=== PATIENT | female | born 1990 | race Caucasian/White ===

== ENCOUNTER 2018-06-07 15:46 | Emergency (ER) | payer OTHER ==
[2018-06-07 16:44] VITALS: RESP 18
--- NOTE | 2018-06-07 17:08 | XR ---
PROCEDURE: XR hand complete RT 3V DATE AND TIME: 06/07/2018 5:01 PM CLINICAL INDICATION: Pain TECHNIQUE: Department protocol. COMPARISON: None FINDINGS: There is no fracture or malalignment. The soft tissues are unremarkable. IMPRESSION: NO ACUTE PROCESS.
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
[2018-06-07 17:48] VITALS: BP 118/78; PULSE 91; TEMP 98
== END 2018-06-07 17:45 | disposition home or self-care (01) ==
LOC: EC 15:46
DX: S69.91XA Unspecified injury of right wrist, hand and finger(s), initial encounter (principal); Z88.0 Allergy status to penicillin; Z88.1 Allergy status to other antibiotic agents; Z91.040 Latex allergy status; X50.9XXA Other and unspecified overexertion or strenuous movements or postures, initial encounter; Y92.89 Other specified places as the place of occurrence of the external cause; Y99.0 Civilian activity done for income or pay
CPT/HCPCS: 99283

== ENCOUNTER 2018-07-16 13:39 | Emergency (ER) | payer OTHER ==
[2018-07-16 13:49] VITALS: BP 133/85; PULSE 101; RESP 20; TEMP 98.2
[2018-07-16] MEDS ORDERED: DIPH,PERTUS(ACELL)TETVAC-LF 0.5 ML VIAL IM ONE (14:08)
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
[2018-07-16] MEDS ORDERED: DOXYCYCLINE 100 MG CAP PO STA (15:03)
[2018-07-16 20:41] LABS: HIV 1 AB Non-Reactive (Non-Reactive); HIV AB P24 Non-Reactive (Non-Reactive); HIV P24 AG Non-Reactive (Non-Reactive)
[2018-07-16 20:55] LABS: Hepatitis B Surface AB- Quant 3.5 mIU/mL; Hepatitis C IgG Antibody Non-Reactive (Non-Reactive)
== END 2018-07-16 15:31 | disposition home or self-care (01) ==
LOC: EC 13:39
DX: S60.571A Other superficial bite of hand of right hand, initial encounter (principal); Z79.51 Long term (current) use of inhaled steroids; Z79.899 Other long term (current) drug therapy; Z88.0 Allergy status to penicillin; Z88.1 Allergy status to other antibiotic agents; Z91.040 Latex allergy status; W50.3XXA Accidental bite by another person, initial encounter; Y92.219 Unspecified school as the place of occurrence of the external cause; Y99.0 Civilian activity done for income or pay; Z23 Encounter for immunization
CPT/HCPCS: 36415; 86706; 86803; 87340; 87390; 90471; 90715; 99283

== ENCOUNTER 2024-10-25 18:03 | Outpatient (CLI) | payer OTHER ==
[2024-10-25 18:50] LABS: Appearance,Urine Clear (Clear); Bilirubin,Urine Negative (Negative); Blood,Urine Negative (Negative); Color,Urine Colorless; Glucose,Urine (UA) Negative (Negative); Ketones,Urine Negative (Negative); Leukocyte Esterase,Urine Negative (Negative); Nitrite,Urine Negative (Negative); Protein,Urine Negative (Negative); Specific Gravity,Urine 1.003 (1.001-1.035); Urobilinogen,Urine <2.0 mg/dL (<2.0)
[2024-10-25 20:43] VITALS: BP 132/80; PULSE 93; RESP 16; TEMP 98.2
--- NOTE | 2024-10-27 11:42 | P.MSEPDOC ---
Presenting Problems - Arrival Data Date of Arrival on Unit: 10/25/24 Time of Arrival on Unit: 18:06 Mode of Transport: Ambulatory - Complaint OB-Reason for Admission/Chief Complaint: Pain Comment: Dr. Chu notified of pt's arrival and c/o left sided upper quad pain along with lower rebounded flank pain per Lidia RN, reactive nst, no ctx noted per monitor, ua sent and awaiting results, will call with results, no other orders at this time Medical History - Information : 1 Para: 0 Term: 0 : 0 Abortions: Spontaneous or Elective: 0 Number of Living Children: 0 - Gestational Age Gestational Age by KYA (wks/days): 31 Weeks and 0 Days Review of Systems - Review of Systems Constitutional: No problems Breast: No problems ENT: No problems Cardiovascular: No problems Respiratory: No problems Gastrointestinal: No problems Genitourinary: No problems Musculoskeletal: No problems Neurological: No problems Skin: No problems Vital Signs - Temperature Temperature: 98.2 F Temperature Source: Temporal Artery Scan - Pulse Pulse Oximetery Pulse Rate: 93 Pulse Assessment Method: Pulse Oximetry - Respirations Respiratory Rate: 16 Oxygen Delivery Method: Room Air - Blood Pressure Right Arm Blood Pressure: 132/80 Blood Pressure Mean: 97 Blood Pressure Source: Automatic Cuff Medical Screen Scoring - Cervical Exam Membranes: Intact - Assessment - Baby A Heart Rate - NICHD Category: Category I (Normal) NST: Reactive Physician Notification - Physician Notified Physician Notified Date: 10/25/24 Physician Notified Time: 18:42 Physician: Jed Chu New Order Received: Yes (Urinalysis) Maternal Triage Index - Maternal Triage Index Presenting for scheduled procedure w/no complaint: No - Stat/Priority 1 Stat Priority 1: No - Urgent/Priority 2 Urgent Priority 2: Yes Provider Notified: Jed Chu Provider Notified Time: 18:42 Criteria Met for Priority 2: Dr. Chu notified of pt's arrival and c/o left sided upper quad pain along with lower rebounded flank pain per Lidia RN, reactive nst, no ctx noted per monitor, ua sent and awaiting results, will call with results, no other orders at this time Disposition - Disposition OB Disposition: Discharge to home Discharge Date: 10/25/24 Discharge Time: 19:39 I agree with the RN Medical Screening Exam: Yes Physician's MSE Comment: I have neither seen nor examined the patient. Case reviewed; plan agreed upon as documented in EMR&OBIX.: Yes Diagnosis: RELATED CONDITIONS, UNSPECIFIED, THIRD TRIMESTER
== END 2024-10-25 19:39 | disposition home or self-care (01) ==
LOC: FBPOP 18:03
PROVIDERS: ATTEND Obstetrics & Gynecology
DX: O26.93 Pregnancy related conditions, unspecified, third trimester (principal); Z3A.31 31 weeks gestation of pregnancy; Z88.1 Allergy status to other antibiotic agents; Z88.0 Allergy status to penicillin; Z91.040 Latex allergy status
CPT/HCPCS: 59025; 81003; 99213

== ENCOUNTER 2024-12-06 10:30 | Outpatient (CLI) | payer OTHER ==
[2024-12-06 11:35] LABS: Appearance,Urine Clear (Clear); Bilirubin,Urine Negative (Negative); Blood,Urine Negative (Negative); Color,Urine Colorless; Glucose,Urine (UA) Negative (Negative); Ketones,Urine Negative (Negative); Leukocyte Esterase,Urine Negative (Negative); Nitrite,Urine Negative (Negative); PH, Urine 6.5 (5.0-8.0); Protein,Urine Negative (Negative); Specific Gravity,Urine 1.002 (1.001-1.035); Urobilinogen,Urine <2.0 mg/dL (<2.0)
[2024-12-06 11:36] LABS: Basophils % (A) 0 %; Eosinophils # (A) 0.2 k/uL (0-0.7); Eosinophils % (A) 1 %; HCT 39.5 % (34.0-46.0); HGB 12.6 gm/dL (11.4-16.0); Lymphocytes # (A) 1.2 k/uL (1.0-4.8); Lymphocytes % (A) 9 %; MCH 29.7 pg (25.0-35.0); MCHC 31.8 g/dL (31.0-37.0); MCV 93.3 fL (80.0-100.0); Mean Platelet Volume 7.2; Monocytes # (A) 0.6 k/uL (0-1.0); Monocytes % (A) 5 %; Neutrophils # (A) 10.4 k/uL (1.3-7.7); Neutrophils % (A) 83 %; Platelet Count 330 k/uL (150-450); RBC 4.23 m/uL (3.80-5.40); RDW 13.3 % (11.5-15.5); WBC 12.6 k/uL (3.8-10.6)
[2024-12-06 12:12] LABS: Creatinine,Urine Random 10.6 mg/dL; Protein/Creatinine Ratio,Urine 1.415
[2024-12-06 12:50] LABS: ALT 27 U/L (4-34); AST 25 U/L (14-36); African American GFR (CKD) >90 (>60 ml/min/1.73 sqM); Blood Urea Nitrogen 9 mg/dL (7-17); LDH 199 U/L (120-246); Non-African American GFR(CKD) >90 (>60 ml/min/1.73 sqM); Uric Acid 3.5 mg/dL (3.7-7.4)
[2024-12-06 13:20] VITALS: BP 141/83; PULSE 105; RESP 18; TEMP 98
== END 2024-12-06 13:05 | disposition home or self-care (01) ==
LOC: FBPOP 10:30
PROVIDERS: ATTEND Obstetrics & Gynecology
DX: Z53.9 Procedure and treatment not carried out, unspecified reason (principal)
CPT/HCPCS: 36415; 59025; 81003; 82565; 82570; 83615; 84156; 84450; 84460; 84520; 84550; 85025; 99215

== ENCOUNTER 2024-12-09 06:13 | Inpatient (IN) | payer OTHER ==
[2024-12-09] MEDS ORDERED: CARBOPROST TROMETHAMINE 250 MCG/ML 1 ML AMP IM PRN (06:29)
[2024-12-09] MEDS ORDERED: TERBUTALINE 1 MG/ML VIAL SQ PRN (06:29)
[2024-12-09] MEDS ORDERED: miSOPROStoL 200 MCG TAB RECTAL PRN (06:29)
[2024-12-09] MEDS ORDERED: OXYTOCIN 10 UNIT/ML 1 ML VIAL IM PRN (06:29)
[2024-12-09] MEDS ORDERED: miSOPROStoL 200 MCG TAB PO PRN (06:29)
[2024-12-09] MEDS ORDERED: LIDOCAINE 0.5% (PF) 5 MG/ML (50 ML SDV) SQ PRN (06:29)
[2024-12-09] MEDS ORDERED: TRANEXAMIC 1,000 MG/100ML-NACL 1,000 MG in EMPTY BAG 1 BAG IV PRN (06:29)
[2024-12-09] MEDS ORDERED: METHYLERGONOVINE 0.2 MG/ML 1 ML AMP IM PRN (06:29)
[2024-12-09] MEDS ORDERED: OXYTOCIN 30 UNITS/500 ML NS 30 UNIT in SALINE 1 500ML.BAG IV SCH (06:30)
[2024-12-09] MEDS: LACTATED RINGERS 1,000 ML IV SCH (06:49)
[2024-12-09 06:53] LABS: Basophils % (A) 0 %; Eosinophils # (A) 0.1 k/uL (0-0.7); Eosinophils % (A) 1 %; HCT 39.8 % (34.0-46.0); HGB 12.7 gm/dL (11.4-16.0); Lymphocytes # (A) 1.3 k/uL (1.0-4.8); Lymphocytes % (A) 11 %; MCH 29.5 pg (25.0-35.0); MCV 92.3 fL (80.0-100.0); Mean Platelet Volume 7.6; Monocytes # (A) 0.7 k/uL (0-1.0); Monocytes % (A) 6 %; Neutrophils # (A) 9.3 k/uL (1.3-7.7); Neutrophils % (A) 80 %; Platelet Count 341 k/uL (150-450); RBC 4.31 m/uL (3.80-5.40); RDW 13.7 % (11.5-15.5); WBC 11.6 k/uL (3.8-10.6)
[2024-12-09 07:14] LABS: ALT 35 U/L (4-34); AST 29 U/L (14-36); African American GFR (CKD) >90 (>60 ml/min/1.73 sqM); Blood Urea Nitrogen 6 mg/dL (7-17); LDH 200 U/L (120-246); Non-African American GFR(CKD) >90 (>60 ml/min/1.73 sqM); Uric Acid 4.6 mg/dL (3.7-7.4)
[2024-12-09 07:16] LABS: Appearance,Urine Cloudy (Clear); Bacteria,Urine Many /hpf; Bilirubin,Urine Negative (Negative); Blood,Urine Negative (Negative); Budding Yeast,Urine Rare /hpf; Calcium Oxalate Crystals,Urine Rare /hpf; Color,Urine Light Yellow; Glucose,Urine (UA) Negative (Negative); Ketones,Urine Negative (Negative); Leukocyte Esterase,Urine Negative (Negative); Mucus,Urine Occasional /hpf; Nitrite,Urine Negative (Negative); PH, Urine 5.5 (5.0-8.0); Protein,Urine Trace (Negative); RBC,Urine 1 /hpf (0-5); Specific Gravity,Urine 1.015 (1.001-1.035); Squamous Epithelial Cell,Urine 10 /hpf (0-4); Urobilinogen,Urine <2.0 mg/dL (<2.0); WBC,Urine 6 /hpf (0-5)
[2024-12-09 07:29] LABS: Creatinine,Urine Random 87.3 mg/dL; Protein/Creatinine Ratio,Urine 0.252
[2024-12-09] MEDS: OXYTOCIN 30 UNITS/500 ML NS 30 UNIT in SALINE 1 500ML.BAG IV SCH (08:11)
--- NOTE | 2024-12-09 10:36 | P.HPOB ---
History of Present Illness H&P Date: 12/09/24 Chief Complaint: medical induction of labor Ms. Meehan is a 34 year old at 37 weeks and 3 days by LMP consistent with 9 week US who presents for medical induction of labor for gestational hypertension. PIH labs were within normal limits and P:C ratio was 0.25. The has otherwise been complicated by difficulty fully visualizing the cardiac anatomy due to maternal body habitus. A ECHO was ordered for better visualization, no obvious anomalies appreciated but ECHO was also incomplete/limited by body habitus. The estimated weight is in the 88%ile for gestational age based on a 30 week growth US. work-up: blood type A positive, antibody screen negative, rubella non- immune, VDRL non-reactive, HBsAg negative, HIV negative, HCV Ab non-reactive, gonorrhea negative, chlamydia negative, 1 hour GTT wnl, GBS positive. Past Medical History Past Medical History: No Reported History History of Any Multi-Drug Resistant Organisms: None Reported Past Surgical History: Orthopedic Surgery Additional Past Surgical History / Comment(s): LEFT & RIGHT ANKLE SURGERY LEft and Right knee surgery Past Anesthesia/Blood Transfusion Reactions: Postoperative Nausea & Vomiting (PONV) Past Psychological History: No Psychological Hx Reported Smoking Status: Never smoker Past Alcohol Use History: None Reported, Occasional Past Drug Use History: None Reported Medications and Allergies Home Medications Medication Instructions Recorded Confirmed Type Acetaminophen [Tylenol] 325 mg PO Q4H 06/07/18 12/06/24 History Aspirin [Children's Aspirin] 81 mg PO DAILY 10/25/24 12/06/24 History Vit No.179/Iron/Folic 1 each PO DAILY 10/25/24 12/06/24 History [ Tablet] Magnesium 250 mg PO HS 12/06/24 12/06/24 History Omeprazole 20 mg PO DAILY 12/06/24 12/06/24 History Allergies Allergy/AdvReac Type Severity Reaction Status Date / Time Cephalosporins Allergy Unknown Verified 12/09/24 06:26 latex Allergy Rash/Hives Verified 12/09/24 06:26 penicillin V Allergy Unknown Verified 12/09/24 06:26 Exam Vital Signs Temp Pulse Resp BP Pulse Ox 12/09/24 06:23 97.1 F L 102 H 16 139/86 97 Intake and Output 12/08/24 12/09/24 12/09/24 22:59 06:59 14:59 Other: Weight 131.542 kg Focused physical exam is performed. This is a healthy-appearing in no apparent distress. Breathing is non-labored. Abdomen is gravid and non-tender. Cervical exam is closed/long/high. Sterile speculum is used to place a cooks catheter with 60cc in each balloon. Extremities non-tender and non-edematous. heart tones are Category I and tocometer is graphing contractions every 2- 4 minutes. Results Result Diagrams: 12/09/24 06:29 12/09/24 06:37 Abnormal Lab Results - Last 24 Hours (Table) 12/09/24 12/09/24 12/09/24 Range/Units 06:29 06:37 06:37 WBC 11.6 H (3.8-10.6) k/uL Neutrophils # 9.3 H (1.3-7.7) k/uL BUN 6 L (7-17) mg/dL Creatinine 0.49 L (0.52-1.04) mg/dL ALT 35 H (4-34) U/L Urine Appearance Cloudy H (Clear) Urine Protein Trace H (Negative) Urine WBC 6 H (0-5) /hpf Ur Squamous Epith Cells 10 H (0-4) /hpf Calcium Oxalate Crystal Rare H (None) /hpf Urine Bacteria Many H (None) /hpf Urine Mucus Occasional H (None) /hpf Urine Yeast (Budding) Rare H (None) /hpf Assessment and Plan Assessment: 34 year old at 37 weeks and 3 days being medically induced for gestational HTN Plan: Admit, clear liquid diet, low dose pitocin with cooks catheter and then per protocol, continuous EFM and tocometer, IV nubain or nitrous oxide for pain relief at this time. IV Vancomycin for GBS ppx given allergies and GBS sensitivities.
[2024-12-09] MEDS: ACETAMINOPHEN TAB 500 MG TAB PO PRN (11:21)
[2024-12-09] MEDS: VANCOMYCIN 2,000 MG in SODIUM CHLORIDE 0.9% 500 ML 500 ML IVPB SCH (12:07)
[2024-12-09] MEDS: NALBUPHINE 10 MG/ML (10 ML MDV) IV PRN (18:06)
[2024-12-09] MEDS ORDERED: fentaNYL (PF) 50 MCG/ML 5 ML AMP ONE (20:25)
[2024-12-09] MEDS ORDERED: ROPIVACAINE 5 MG/ML 30 ML VIAL ONE (20:25)
[2024-12-09] MEDS ORDERED: SODIUM CHLORIDE 0.9% 250 ML BAG ONE (20:25)
[2024-12-10] MEDS: CITRIC ACID-SODIUM CITRATE 15 ML CUP PO ONE (12:00)
[2024-12-10] MEDS ORDERED: CLINDAMYCIN 900 MG in DEXTROSE 5% IN WATER 50 ML IVPB PRN (12:04)
[2024-12-10] MEDS ORDERED: LIDOCAINE HCL/PF 20 MG/ML 10 ML AMP ONE (12:27)
[2024-12-10] MEDS ORDERED: OXYTOCIN 10 UNIT/ML 1 ML VIAL ONE (12:27)
[2024-12-10] MEDS ORDERED: MORPHINE SULFATE (PF) 0.3 MG/0.3 ML SYR ONE (12:27)
[2024-12-10] MEDS ORDERED: OXYTOCIN 30 UNITS/500 ML NS BAG IV ONE (12:27)
[2024-12-10] MEDS ORDERED: ONDANSETRON 4 MG/2 ML VIAL ONE (12:27)
[2024-12-10] MEDS ORDERED: HYDROmorphone (PF) 1 MG/ML ONE (12:27)
[2024-12-10] MEDS ORDERED: NALBUPHINE (ANES) 10 MG/ML - 1 ML AMP ONE (12:27)
[2024-12-10] MEDS ORDERED: KETOROLAC 15 MG/ML 1 ML VIAL ONE (12:27)
[2024-12-10] MEDS: GENTAMICIN 400 MG in SODIUM CHLORIDE 0.9% 100 ML IVPB PRN (12:40)
[2024-12-10] MEDS ORDERED: diphenhydrAMINE 25 MG CAP PO PRN (14:13)
[2024-12-10] MEDS ORDERED: diphenhydrAMINE 50 MG/ML 1 ML VIAL IVP PRN ×2 (14:13)
[2024-12-10] MEDS ORDERED: NALOXONE 0.4 MG/ML 1 ML VIAL IV PRN (14:13)
[2024-12-10] MEDS ORDERED: diphenhydrAMINE 50 MG CAP PO PRN (14:13)
[2024-12-10] MEDS ORDERED: ONDANSETRON 4 MG/2 ML VIAL IVP PRN (14:13)
[2024-12-10] MEDS ORDERED: ZOLPIDEM 5 MG TAB PO PRN (14:13)
[2024-12-10] MEDS ORDERED: METOCLOPRAMIDE 5 MG/ML 2 ML VIAL IVP PRN (14:13)
--- NOTE | 2024-12-10 14:59 | P.OP ---
Date of Procedure: 12/10/24 Preoperative Diagnosis: 1. Term IUP at 37 weeks and 3 days 2. Gestational Hypertension 3. Failed induction of labor Postoperative Diagnosis: 1. Term IUP at 37 weeks and 3 days 2. Gestational Hypertension 3. Failed induction of labor 4. Occiput posterior presentation Procedure(s) Performed: Primary Lower Transverse Section Implants: None Anesthesia: epidural Surgeon: Gilma Mckeon Del[employer] Associate #1: Radha Tanner Estimated Blood Loss (ml): 646 IV fluids (ml): 800 Urine output (ml): 300 (clear) Pathology: none sent Condition: stable Disposition: floor Indications for Procedure: Ms. Meehan is a 34 year old at 37 weeks and 3 days presenting to L&D for medical induction of labor for gestational hypertension. She had a cooks catheter placed on the morning of 12/09. When the cooks was removed about 8 hours later she was 4-5 centimeters dilated. Her cervix did efface and the fetus had descent initially. However, the patient then had arrest of dilation with ruptured membranes for >15 hours. section was recommended for maternal and well-being. The risks, benefits, and alternatives to section were discussed with the patient including risk of bleeding, infection, damage to surrounding structures including bladder/bowels/ureters, and post-operative VTE. The patient understands these risks and desires to proceed with section. Operative Findings: Occiput posterior presentation. Apgars 9/9. Weight 7 pounds and 9 ounces (3420 grams). Normal uterus, bilateral fallopian tubes, and ovaries. Description of Procedure: The patient was taken back to the operating room where spinal anesthesia was found to be adequate. Gentamicin and Clindamycin were given for infection prophylaxis. She was prepared and draped in the dorsal supine position with a leftward tilt. A Pfannenstiel skin incision was made with the scalpel. The incision was carried down to the fascia with a bovie. The fascia was incised and extended laterally with Santos scissors. The superior aspect of the fascia was grasped with the Cherrie clamps. The underlying rectus muscle was dissected off sharply with Santos scissors. In a similar fashion, the inferior aspect of the fascia was elevated with Cherrie clamps and the rectus muscle and pyramidalis were dissected off. Excellent hemostasis was achieved with the bovie. The rectus muscle was in the midline down to the level of the pubic symphysis. Pre-peritoneal fatty tissue was bluntly dissected to expose the peritoneum. The peritoneum was found to be free of adherent bowel and entered sharply with Santos scissors. The peritoneal incision was extended superiorly and inferiorly to the bladder reflection with good visualization of the bladder. The bladder blade was inserted and vesicouterine peritoneum was identified. Intraabdominal survey revealed scant, clear peritoneal fluid and the thinned-out lower uterine segment. The vesicouterine peritoneum was opened with scissors and the bladder flap was developed. The bladder blade was repositioned to keep the bladder out of the operative field. The lower uterine segment was incised with a scalpel. The amniotic sac was ruptured with an Allis clamp and clear fluid was noted. The uterine incision was extended bluntly with lateral and upward traction. The fetus was in cephalic presentation. The head was elevated out of the pelvis with special attention paid to avoid using the uterine incision as a fulcrum. Gentle fundal pressure was applied once the head was brought into the incision. The infant was delivered with no difficulty and was noted to be crying spontaneously. The mouth and nose were suctioned with a bulb. The cord was clamped and cut. The infant was handed off to the svp digital [employer]. IV oxytocin was initiated to facilitate uterine contractions. The placenta was delivered intact with manual massage of uterine fundus. The uterus was then exteriorized and the inside of the uterus was gently wiped with a lap sponge to assure complete removal of placental membranes. The uterine incision was closed with 0-Vicryl suture in a running locked fashion. A second imbricating layer was placed with 0-Vicryl. The ovaries and tubes were found to be normal. The uterus, tubes, and ovaries were then gently returned to the abdominal cavity. The abdomen was copiously suction irrigated. The uterine incision was reinspected and excellent hemostasis was noted. The fascial layer was closed with a 0-Vicryl suture. The subcutaneous tissue was reapproximated with 2-0 Plain Gut. The skin was closed with 4-0 Monocryl in a subcuticular fashion.The patient tolerated the procedure well. All the counts were correct times two. The patient was taken to the recovery room in a stable condition. A physician surgical pathologist was utilized for the entire procedure due to the need for tissue retraction, dissection of vital structures, prevention and management of blood loss, and reduction in overall operative and anesthesia time as is the standard of care.
[2024-12-10] MEDS: ACETAMINOPHEN TAB 500 MG TAB PO SCH (19:25)
[2024-12-10] MEDS: SENNOSIDES-DOCUSATE SODIUM 1 EACH TAB PO SCH (19:25)
[2024-12-10] MEDS: LACTATED RINGERS 1,000 ML IV SCH (19:28)
[2024-12-11] MEDS: KETOROLAC 15 MG/ML 1 ML VIAL IVP SCH
[2024-12-11] MEDS: MEASLES-MUMPS-RUBELLA VACC/PF 12,500 UNIT/0.5 ML VIAL SQ ONE (03:34)
[2024-12-11 07:22] LABS: Basophils # (A) 0.1 k/uL (0-0.2); Basophils % (A) 0 %; Eosinophils # (A) 0.2 k/uL (0-0.7); Eosinophils % (A) 1 %; HCT 39.5 % (34.0-46.0); HGB 12.4 gm/dL (11.4-16.0); Lymphocytes # (A) 0.9 k/uL (1.0-4.8); Lymphocytes % (A) 6 %; MCH 29.5 pg (25.0-35.0); MCHC 31.5 g/dL (31.0-37.0); MCV 93.8 fL (80.0-100.0); Mean Platelet Volume 7.8; Monocytes # (A) 0.8 k/uL (0-1.0); Monocytes % (A) 5 %; Neutrophils # (A) 12.9 k/uL (1.3-7.7); Neutrophils % (A) 86 %; Platelet Count 300 k/uL (150-450); RBC 4.21 m/uL (3.80-5.40); RDW 13.8 % (11.5-15.5)
--- NOTE | 2024-12-11 08:41 | P.PN ---
Progress Note - Text Progress Note Date: 12/11/24 Postoperative day 1 status post section under epidural anesthesia, and epidural morphine given for postoperative analgesia, patient doing well, there is no anesthesia related complications, Patient had no headache, vital signs stable , Assessment and plan= postop day 1 status post , doing well there is no anesthesia related complication.
--- NOTE | 2024-12-11 08:43 | P.PNOBGPC ---
Subjective - Subjective Principal diagnosis: s/p primary section Interval history: The patient is doing well this morning and had no acute events overnight. She has no complaints this morning. She reports minimal lochia, passing flatus, voiding without difficulty, ambulating, and eating/drinking without nausea or vomiting. She is her without difficulty. She denies chest pain, shortness of breathing, fevers, or chills overnight. She denies pain or swelling in the legs. Patient reports: Reports appetite normal, Reports voiding normally, Reports pain well controlled, Reports ambulating normally [place]: other (in nursery for respiratory distress) Objective - Vital Signs Latest vital signs: Vital Signs Temp Pulse Resp BP Pulse Ox 12/11/24 03:20 98.0 F 97 16 119/82 12/10/24 19:20 98.5 F 99 16 126/79 100 12/10/24 15:20 98.2 F 80 16 120/70 12/10/24 15:05 82 16 125/76 99 12/10/24 14:50 77 16 123/73 94 L 12/10/24 14:35 91 14 121/78 94 L 12/10/24 14:20 87 16 125/84 12/10/24 14:05 90 14 94 L 12/10/24 13:50 85 14 95 12/10/24 13:35 84 14 95 12/10/24 13:20 98.0 F 88 14 113/69 96 Intake and Output 12/10/24 12/11/24 12/11/24 22:59 06:59 14:59 Output Total 2045 1800 Balance -2045 Output: Urine 1400 1800 Uretheral (Baker) 1200 Output, Quantitative 646 Blood Loss - Exam Extremities: Present: normal Abdomen: Present: normal appearance, soft Incision: Present: normal, dry, dressed Uterus: Present: normal, firm - Labs Labs: Abnormal Lab Results - Last 24 Hours (Table) 12/11/24 Range/Units 06:57 WBC 15.0 H (3.8-10.6) k/uL Neutrophils # 12.9 H (1.3-7.7) k/uL Lymphocytes # 0.9 L (1.0-4.8) k/uL Assessment and Plan Assessment: 34 year old now POD#1 s/p primary section for failed induction of labor Plan: 1. Postoperative. Patient meeting all milestones appropriately. 2. Gestational hypertension. BPs normotensive overnight. 3. Viable female . In nursery for respiratory distress. Dispo: Continue inpatient management. Encouraged ambulation.
[2024-12-11] MEDS: IBUPROFEN 800 MG TAB PO SCH (17:10)
[2024-12-11] MEDS: SIMETHICONE 80 MG CHEWABLE PO SCH (17:42)
--- NOTE | 2024-12-12 09:20 | P.PNOBGPC ---
Subjective - Subjective Principal diagnosis: s/p primary section Interval history: The patient is doing well this morning and had no acute events overnight. She has no complaints this morning. She reports minimal lochia, passing flatus, voiding without difficulty, ambulating, and eating/drinking without nausea or vomiting. She is her without difficulty. She denies chest pain, shortness of breathing, fevers, or chills overnight. She denies pain or swelling in the legs. Patient reports: Reports appetite normal, Reports voiding normally, Reports pain well controlled, Reports ambulating normally [place]: other (in the nursery for IV antibiotics) Objective - Vital Signs Latest vital signs: Vital Signs Temp Pulse Resp BP Pulse Ox 12/12/24 08:00 97.7 F 81 17 120/83 97 12/12/24 00:50 97.7 F 85 16 133/86 100 12/11/24 16:00 98.0 F 85 18 119/81 12/11/24 13:02 97.2 F L 86 16 137/95 Intake and Output 12/11/24 12/12/24 12/12/24 22:59 06:59 14:59 Other: # Voids 2 1 - Exam Extremities: Present: normal Abdomen: Present: normal appearance, soft Incision: Present: normal, dry, intact Uterus: Present: normal, firm Assessment and Plan Assessment: 34 year old now POD#2 s/p primary section for failed induction of labor Plan: 1. Postoperative. Patient meeting all milestones appropriately. 2. Gestational hypertension. BPs normotensive to mild range overnight. 3. Viable female infant. In nursery for IV antibiotics. Dispo: Continue inpatient management. Encouraged ambulation.
--- NOTE | 2024-12-13 09:40 | P.DS ---
Providers Date of admission: 12/09/24 06:13 Expected date of discharge: 12/13/24 Attending physician: Gilma Mckeon MD Primary care physician: Stated None Hospital Course: Ms. Meehan is a 34 year old now POD#3 s/p primary for failed induction of labor for gestational hypertension. The surgery was uncomplicated. Her course has been routine. The patient is doing well this morning and had no acute events overnight. She has no complaints this morning. She reports minimal lochia, passing flatus, voiding without difficulty, ambulating, and eating/drinking without nausea or vomiting. doing well at bedside. She denies chest pain, shortness of breathing, fevers, or chills overnight. She denies pain or swelling in the legs. Postoperative restrictions are reviewed with the patient including pelvic rest for 6 weeks, no lifting heavier than 15 pounds for 6 weeks. The patient is encouraged to call the office if she experiences any heavy bleeding, foul-smelling discharge, breast complaints, or any if she has any other concerns. She will follow up in the office with in 1 week for blood pressure check. All questions are answered. Assessment: 34 year old now POD#3 s/p primary Patient Condition at Discharge: Good Plan - Discharge Summary New Discharge Prescriptions: New Docusate [Colace] 100 mg PO BID PRN #60 capsule PRN Reason: Constipation Acetaminophen Tab [Tylenol] 650 mg PO Q6H PRN #30 tab PRN Reason: Mild Pain (Scale 1 To 3) Ibuprofen [Motrin] 600 mg PO Q6HR PRN #30 tab PRN Reason: Mild Pain (Scale 1 To 3) oxyCODONE HCL [Roxicodone] 5 mg PO Q6HR PRN 3 Days #12 tab PRN Reason: Breakthrough Pain No Action Acetaminophen [Tylenol] 325 mg PO Q4H Aspirin [Children's Aspirin] 81 mg PO DAILY Vit No.179/Iron/Folic [ Tablet] 1 each PO DAILY Magnesium 250 mg PO HS Omeprazole 20 mg PO DAILY Discharge Medication List Acetaminophen [Tylenol] 325 mg PO Q4H 06/07/18 [History] Aspirin [Children's Aspirin] 81 mg PO DAILY 10/25/24 [History] Vit No.179/Iron/Folic [ Tablet] 1 each PO DAILY 10/25/24 [History] Magnesium 250 mg PO HS 12/06/24 [History] Omeprazole 20 mg PO DAILY 12/06/24 [History] Acetaminophen Tab [Tylenol] 650 mg PO Q6H PRN #30 tab 12/13/24 [Rx] Docusate [Colace] 100 mg PO BID PRN #60 capsule 12/13/24 [Rx] Ibuprofen [Motrin] 600 mg PO Q6HR PRN #30 tab 12/13/24 [Rx] oxyCODONE HCL [Roxicodone] 5 mg PO Q6HR PRN 3 Days #12 tab 12/13/24 [Rx] Follow up Appointment(s)/Referral(s): Gilma Mckeon MD [STAFF PHYSICIAN] - 1 Week (C/S Appointment 12-23-2024 at 3:45pm appointment 01/21/25 at 1:15pm) Activity/Diet/Wound Care/Special Instructions: Instructions 1. Do not begin any exercise program for 3 weeks. 2. Do not resume sexual relations for 6 weeks or longer if uncomfortable. 3. You may take tub baths or showers at any time. 4. You may use tampons if desired after 6 weeks. 5. Keep any areas repaired with stitches clean and dry. 6. If you are not nursing, wear a good fitting, supportive bra during the day and limit fluid intake for at least 1 week to prevent breast engorgement. 7. Call the office, , within the next week to make appointment for your 6 week checkup if it has not already been made. 8. Report any of the following occurrences to the doctor promptly: a. Heavy, excessive bleeding b. Chills, fever c. Burning or frequency of urination d. Pain or redness and breasts if nursing e. Increasing pain or swelling of vulva (stitches). In addition to the above instructions, the following additional should be followed: 1. No heavy lifting or straining (exercising) until after 6 week checkup. 2. Keep abdominal incision clean and dry: You may wear a dressing if more comfortable. 3. Make office appointment for 2 weeks after delivery date. Discharge Disposition: HOME SELF-CARE
[2024-12-13 12:06] VITALS: BP 131/85; PULSE 75; RESP 20; TEMP 97.7
== END 2024-12-13 14:30 | disposition home or self-care (01) | DRG 788 ==
LOC: 4FBP 06:13
PROVIDERS: ADMIT Obstetrics & Gynecology; ATTEND Obstetrics & Gynecology
PROC: 10907ZC Drainage of Amniotic Fluid, Therapeutic from Products of Conception, Via Natural or Artificial Opening (ICD-10-PCS; 2024-12-09)
PROC: 0U7C7DZ Dilation of Cervix with Intraluminal Device, Via Natural or Artificial Opening (ICD-10-PCS; 2024-12-09)
PROC: 3E033VJ Introduction of Other Hormone into Peripheral Vein, Percutaneous Approach (ICD-10-PCS; 2024-12-09)
PROC: 10D00Z1 Extraction of Products of Conception, Low, Open Approach (ICD-10-PCS; principal; 2024-12-10 12:00)
PROC: 3E0234Z Introduction of Serum, Toxoid and Vaccine into Muscle, Percutaneous Approach (ICD-10-PCS; 2024-12-11)
DX: O13.4 Gestational [pregnancy-induced] hypertension without significant proteinuria, complicating childbirth (principal); O75.5 Delayed delivery after artificial rupture of membranes; O61.9 Failed induction of labor, unspecified; O62.0 Primary inadequate contractions; Z37.0 Single live birth; Z23 Encounter for immunization; Z3A.37 37 weeks gestation of pregnancy; Z79.82 Long term (current) use of aspirin; Z79.899 Other long term (current) drug therapy; Z88.1 Allergy status to other antibiotic agents; Z91.040 Latex allergy status; Z88.0 Allergy status to penicillin
CPT/HCPCS: 81001; 82565; 82570; 83615; 84156; 84450; 84460; 84520; 84550; 85025; 86850; 86900; 86901; 90707